=== PATIENT | male | born 1940 | race Caucasian/White ===

== ENCOUNTER 2017-07-18 23:41 | Emergency (ER) | payer OTHER ==
[~2017-07-18] VITALS: Ht 180.3 cm; Wt 99.8 kg
[~2017-07-18 23:41] MED LIST: ADULT LOW DOSE81 MG PO; ALLOPURINOL 10100 M1 PO; AZOR 5-20 MG T1 EACH PO; B COMPLEX SUBLI59 ML SL; BACTRIM; CARAFATE1 GM PO; CINNAMON PLUS1 EACH; CINNAMON500 MG PO; CIPRO250 M1 PO; CLOPIDOGREL75 MG PO; Cinnamon PO; FLAX OIL1000 MG PO; FLOMAX PO; LOTREL 5-10 MG1 EACH PO; LOTREL 5-20 MG1 EACH PO; MAGNES; MAGOX 400400 MG PO; Magnesium PO; NAPROSYN500 MG PO; OMEPRAZOLE40 MG PO; PANAX GINSENG PO; PRAVACHOL40 MG PO; PRAVASTATIN SOD40 MG PO; PREDNISONE 10 M10 MG PO; SUPER B COMPLE150 MG PO; TERBINAFINE HC250 MG PO; ZYRTEC10 MG PO
[2017-07-18] MEDS ORDERED: TRAMADOL 50 MG50 MG PO (23:55)
[2017-07-19] MEDS ORDERED: CLEOCIN HCL150 MG PO (00:43)
[2017-07-19 01:11] VITALS: BP 137/74
[2017-07-19 02:45] LABS: CLARITY SLIGHTLY HAZY; COLOR YELLOW; SOURCE ELBOW; TOTAL VOLUME 3.5 ml
[2017-07-19 02:46] LABS: BF LYMPHOCYTES 2 %; BF POLYS 98 %; BF RBC 1450 /mm3; TOTAL CELL COUNT 835 /mm3
[2017-07-19 06:07] LABS: SOURCE LEFT ELBOW
[2017-07-19 06:32] LABS: SOURCE LEFT ELBOW
[2017-07-20 06:10] LABS: BODY FLUID PROTEIN 4.2 g/dL (())
[2017-08-06 13:59] LABS: BF CRYSTALS ND
== END 2017-07-19 01:11 | disposition home or self-care (01) ==
LOC: M.ERS 23:41
PROVIDERS: Nurse Practitioner Family
DX: M71.122 Other infective bursitis, left elbow (principal); I10 Essential (primary) hypertension; G51.0 Bell's palsy; Z87.19 Personal history of other diseases of the digestive system; Z87.442 Personal history of urinary calculi; Z86.73 Personal history of transient ischemic attack (TIA), and cerebral infarction without residual deficits; Z87.891 Personal history of nicotine dependence

== ENCOUNTER 2017-09-21 21:15 | Inpatient (IN) | payer OTHER ==
[~2017-09-21] VITALS: Ht 180.3 cm; Wt 105.7 kg
[~2017-09-21 21:15] MED LIST changes: +CLEOCIN HCL150 MG PO; +TRAMADOL 50 MG50 MG PO
[2017-09-21 21:19] VITALS: BP 145/89
[2017-09-21 21:40] LABS: HEMATOCRIT 40.3 % (42.0-52.0); HEMOGLOBIN 14.2 gm/dL (14.0-18.0); MCH 32.5 pg (26.0-34.0); MCHC 35.3 g/dL (28.0-37.0); MCV 92.1 fL (80.0-100.0); MPV 6.1 fl. (7.2-11.1); NUCLEATED RBCS 0 /100WBC; PLATELET COUNT* 298 thou/uL (150-400); RBC 4.37 mil/uL (4.50-6.00); RDW-CV 14.3 % (10.5-14.5); WBC 11.1 thou/uL (4.0-11.0)
[2017-09-21 21:50] LABS: CREATININE 1.9 mg/dL (0.6-1.3); POTASSIUM 4.7 mmol/L (3.5-5.1)
[2017-09-21 21:55] LABS: ALBUMIN 3.5 g/dL (3.4-5.0); TOTAL BILIRUBIN 0.5 mg/dL (<0.1-1.0); TOTAL PROTEIN 6.7 g/dL (6.4-8.2)
[2017-09-21 22:01] LABS: ABSOLUTE EOSINOPHILS 0.1 thou/uL (0.0-0.7); ABSOLUTE LYMPHOCYTES 0.9 thou/uL (0.8-5.3); ABSOLUTE MONOCYTES 0.4 thou/uL (0.0-1.2); ABSOLUTE NEUTROPHILS 9.7 thou/uL (1.6-8.1); ATYPICAL LYMPHS 6 %; PLATELET ESTIMATE ADEQUATE
[2017-09-21 23:09] LABS: URINE BILIRUBIN NEGATIVE (Negative); URINE BLOOD 2+ (Negative); URINE COLOR YELLOW; URINE GLUCOSE-RANDOM NEGATIVE (Negative); URINE KETONES NEGATIVE (Negative); URINE NITRITE-REFLEX NEGATIVE (Negative); URINE PROTEIN TRACE (Negative); URINE UROBILINOGEN 0.2 E.U./dl (0.2-1.0)
[2017-09-21 23:11] LABS: URINE CLARITY CLOUDY; URINE LEUKOCYTES-REFLEX 3+ (Negative)
[2017-09-21 23:21] LABS: BACTERIA-REFLEX 1-9 Few /HPF (None Seen); SQUAMOUS 0-3 Few /LPF (0-3); URINE RBC 3-10 Few /HPF (0-2); URINE WBC-REFLEX >25 Many /HPF (0-5)
[2017-09-21 23:22] LABS: CASTS None Seen /LPF (None Seen); CRYSTALS None Seen /LPF (None Seen); MUCUS 0-3 Light strn/LPF (None Seen)
[2017-09-22] VITALS (7 sets, daily range): BP systolic 106–141; BP diastolic 48–75
--- NOTE | 2017-09-22 01:00 | NUR ---
PATIENT ARRIVED TO UNIT AT 0055 VIA CART. PATIENT AMBULATORY TO UNIT BED. ADMISSION HISTORY AND ASSESSMENT COMPLETED AND CHARTED, VSS. PATIENT ON ROOM AIR WITH O2 SATS >92%. PATIENT RATES PAIN 2/10 AND STATES THE "MEDICATION HE RECIEVED IN ER HELPED." IVF INFUSING PER ORDERS. PATIENT ORIENTED TO ROOM AND CALL LIGHT. PATIENT RESTING COMFORTABLY AT THIS TIME. GOAL IS EFFECTIVE PAIN CONTROL FOR THE REMAINING OF THE SHIFT. CALL LIGHT WITHIN REACH.
--- NOTE | 2017-09-22 04:10 | NUR ---
PATIENT PROGRESSING TOWARDS GOALS: PATIENT HAS NOT REQUIRED PAIN MEDICATION SINCE ARRIVAL TO UNIT. PATIENT HAS BEEN RESTING COMFORTABLY. URINE STRAINING IN PROGRESS WITH NO STONES OBSERVED. HOURLY ROUNDING OBSERVED. CALL LIGHT WITHIN REACH.
[2017-09-22 05:36] LABS: HEMATOCRIT 38.7 % (42.0-52.0); HEMOGLOBIN 13.7 gm/dL (14.0-18.0); MCH 32.5 pg (26.0-34.0); MCHC 35.3 g/dL (28.0-37.0); MPV 6.4 fl. (7.2-11.1); RBC 4.2 mil/uL (4.50-6.00); WBC 9.8 thou/uL (4.0-11.0)
[2017-09-22 05:52] LABS: ALBUMIN 3.1 g/dL (3.4-5.0); CALCIUM 8.5 mg/dL (8.5-10.1); CREATININE 1.7 mg/dL (0.6-1.3); POTASSIUM 4.5 mmol/L (3.5-5.1); TOTAL BILIRUBIN 0.5 mg/dL (<0.1-1.0); TOTAL PROTEIN 5.8 g/dL (6.4-8.2)
--- NOTE | 2017-09-22 14:35 | NUR ---
CM ASSESSMENT: Pt is A&O. Resides at home with his . Independent with ADLs. No DME. No hx of HH or SNF. Surgery following. Goal is to return home once medically stable for dc. Following for disposition.
--- NOTE | 2017-09-22 18:00 | NUR ---
PT IS A & O X4, ABLE TO COMMUNICATE NEEDS TO STAFF. VS WNL WITH EXCEPTION OF TEMP OF 100.9 AT 1600, PHYSICIAN AWARE. PER DR. MCCALL, PT IS NOW NPO AND WILL REMAIN NPO UNTIL TOMORROW'S PROCEDURE SCHEDULED FOR 729. OFFERED PT ACETAMINOPHEN FOR FEVER BUT PT REFUSED. PT STATES HE DOES NOT HAVE PAIN AT EACH ASSESSMENT THROUGHOUT THE DAY. NEEDED ITEMS AND CALL LIGHT WITHIN REACH.
--- NOTE | 2017-09-22 18:30 | NUR ---
PT'S URINE STRAINED THROUGHOUT THE SHIFT. VERY SMALL PARTICLES THAT APPEARED SIMILAR TO SAND IN ONE URINAL OUTPUT ONLY. NO OTHER PARTICLES OF ANY SIZE FOUND IN ANY URINE TODAY.
--- NOTE | 2017-09-22 21:49 | NUR ---
RECEIVED REPORT AND ASSUMED CARE OF PATIENT AT 1930. ASSESSMENT AND VITALS COMPLETED CHARTED, VSS. PATIENT ON ROOM AIR UPON ASSESSMENT, O2 SATS 90%. PATIENT DENIES SHORTNESS OF AIR OR DISCOMFORT. PATIENT PLACED ON 2L O2 NC AND O2 SATS IMPROVED >92%. PATIENT DENIES PAIN. PATIENT HAS LOW GRADE FEVER BUT NOT REQUIRING ACETAMINOPHEN AT THIS TIME. IVF INFUSING PER ORDERS. CONSENT FOR PROCEDURE SIGNED AND PLACED IN CHART. PATIENT VERBALIZES UNDERSTANDING OF PROCEDURE AND STATES HE HAS "HAD THIS DONE BEFORE." PATIENT VOIDS PER URINAL AND STAFF IS STRAINING. ONE SMALL STONE NOTED ON PATIENT'S RECENT VOID AROUND 2100. STONE COLLECTED AND SENT TO LAB. HOURLY ROUNDING OBSERVED. CALL LIGHT WITHIN REACH
[2017-09-23] VITALS (8 sets, daily range): BP systolic 110–132; BP diastolic 52–70
--- NOTE | 2017-09-23 05:01 | NUR ---
PATIENT REMAINS STABLE THIS SHIFT AND IS PARTIALLY PROGRESSING TOWARDS GOALS: PATIENT DENIES PAIN THIS SHIFT AND HAS RESTED COMFORTABLY. URINE CONTINUES TO BE STRAINED, ONE SMALL STONE FOUND AND SENT TO LAB THIS SHIFT. PATIENT NPO FOR URETER STENT PLACEMENT THIS AM. PATIENT VERBALIZES UNDERSTANDING AND IS COMPLIANT. HOURLY ROUNDING OBSERVED. CALL LIGHT WITHIN REACH
[2017-09-23 05:55] LABS: ABSOLUTE LYMPHOCYTES 0.5 thou/uL (0.8-5.3); ABSOLUTE MONOCYTES 0.6 thou/uL (0.0-1.2); ABSOLUTE NEUTROPHILS 4.1 thou/uL (1.6-8.1); BASOPHILS 0.4 %; EOSINOPHILS 0.5 %; HEMATOCRIT 36.7 % (42.0-52.0); HEMOGLOBIN 12.9 gm/dL (14.0-18.0); LYMPHOCYTES 8.7 %; MCH 32.3 pg (26.0-34.0); MCHC 35.1 g/dL (28.0-37.0); MCV 91.8 fL (80.0-100.0); MONOCYTES 11.7 %; MPV 6.4 fl. (7.2-11.1); NUCLEATED RBCS 0 /100WBC; PLATELET COUNT* 222 thou/uL (150-400); POLYS 78.7 %; RDW-CV 14.1 % (10.5-14.5); WBC 5.2 thou/uL (4.0-11.0)
[2017-09-23 06:16] LABS: CALCIUM 8.2 mg/dL (8.5-10.1); CREATININE 1.6 mg/dL (0.6-1.3); POTASSIUM 4.5 mmol/L (3.5-5.1)
--- NOTE | 2017-09-23 06:35 | NUR ---
PATIENT LEFT VIA BED TO PRE OP FOR SURGERY. SCHEDULED ROCEPHIN SENT WITH PATIENT. PRE OP CHECKLIST COMPLETED
--- NOTE | 2017-09-23 11:03 | NUR ---
ASSUMED CARE AT 0730. PT WAS OFF THE FLOOR THIS MORNING FOR URETER STENT PLACEMENT. PT RETURNED TO THE FLOOR AT 0855. PT IS A&O X4 CALM AND COOPERATIVE. HE DENIES ANY C/O PAIN OR DISCOMFORT AND VSS ON 2L VIA NC. PT VOIDING VIA URINAL AND NURSING STRAINING URINE. PT HAS A GOOD APPETITE AND ATE GREATER THAN 90% OF HIS BREAKFAST. PT CURRENTLY RESTING IN BED WITH SCD'S IN PLACE, NURSING WILL CONTINUE TO MONITOR.
--- NOTE | 2017-09-23 16:30 | NUR ---
ASSUMED CARE OF PATIENT. AGREE WITH PREVIOUS NURSES CHARTING. PATIENT HAS BEEN ORIENTED TO ROOM. IV IS PATENT AND INFUSING. VSS ON 2L O2. CAP-NO IN PLACE. CALL LIGHT IS WITHIN REACH. NURSING WILL CONTINUE TO MONITOR.
--- NOTE | 2017-09-23 18:04 | NUR ---
ALERT AND ORIENTED X4. UP STAND BY ASSIST IN ROOM. IV IS PATENT AND INFUSING. DENIES PAIN AND NAUSEA. TOLERATING DIET. URINATING VIA URINAL. VSS ON 2L O2. HOURLY ROUNDS HAVE BEEN MAINTAINED SINCE ARRIVING TO UNIT. CALL LIGHT IS WITHIN REACH. NURSING WILL CONTINUE TO MONITOR.
[2017-09-24 00:47] VITALS: BP 128/71
[2017-09-24 04:09] VITALS: BP 131/74
--- NOTE | 2017-09-24 05:42 | NUR ---
PATIENT HAS SLEPT WELL THROUGHOUT THE NIGHT. NO C/O PAIN. URINE STRAINED AND NO STONES RETRIEVED DURING SHIFT. VSS ON 2L 02 VIA NASAL CANNULA AND CAPNO. PATIENT IS UP SBA AND STEADY. IV IN RIGHT WRIST @ 100ML/HR. NEW IV PLACED IN RIGHT FOREARM D/T PATIENT ACCIDENTLY PULLING OUT HIS IV DURING THE NIGHT. PATIENT INSTRUCTED TO USE CALL LIGHT WHEN NEEDING ASSISTANCE. HOURLY ROUNDS MADE. WILL CONTINUE WITH PLAN OF CARE AND NURSING TO MONITOR.
[2017-09-24 07:49] VITALS: BP 124/66
[2017-09-24] MEDS ORDERED: CIPRO500 MG PO (09:48)
[2017-09-24] MEDS ORDERED: LEVSIN0.125 MG PO (13:36)
[2017-09-24] MEDS ORDERED: FLOMAX0.4 MG PO (13:37)
--- NOTE | 2017-09-24 13:54 | NUR ---
PT DC'D HOME WITH ALL BELONGINGS. PT ACKNOWLEDGED DISCHARGE INSTRUCTIONS AND MEDICATIONS. PT DENIED PAIN OR OTHER DISCOMFORTS. PT ABLE TO URINATE FREELY AND WITHOUT PAIN OR BLOOD NOTED. URINE STRAINED. NO STONES NOTED.
[2017-10-01 12:06] LABS: STONE COLOR Tan (()); STONE COMMENT Note: (()); STONE SODIUM ACID URATE 97 % (())
--- NOTE | 2017-11-05 15:28 | OP ---
[address] [address] OPERATIVE REPORT Name: CHARITYJESUS RASHAWN Room: [address] [place] M.R.#: [id number] Admission: 09/22/17 Attend Phys: Robin Daigle MD Discharge: 09/24/17 Date of : 40 Report #: [id number] THIS REPORT FOR: //name// CC: Robin Fairchild DATE OF SERVICE: 09/23/2017 PREOPERATIVE DIAGNOSIS: Left ureteral stone with fever. POSTOPERATIVE DIAGNOSIS: Left ureteral stone with fever. PROCEDURE: Panendoscopy and cystoscopy, left retrograde pyelogram, left double-J stent placement and urethral dilation, complex secondary to infection, ureteral dilation. INDICATIONS: This is a 77-year-old white male with a history of flank pain and multiple stones in the past. CT showed significant hydronephrosis and has a 2 mm stone at the left UPJ. He presents now for retrograde pyelogram, double-J stent. He understands risks of bleeding, infection and the other procedures. He understands the stent will be temporary and needs to be removed. He also understands that we will not get the stone out secondary to the fever he ran and the fact that he has got Proteus in the urine. DESCRIPTION OF PROCEDURE: Informed consent was obtained. The patient was sterilely prepped and draped in dorsal lithotomy position and was given appropriate antibiotic. Cystoscopy was carried out, was unable to get the scope past the distal anterior urethra. I had to dilate it starting at about [address] all the way up to 24-Tongan in order to get the 22-Tongan obturator through the urethra. There was minimal trauma doing this. I do not think he will need a Mcguire catheter. He had mild bilobar hyperplasia. He had quite a bit of mucus in the bladder which was irrigated out. No lesions were seen in the bladder. Both ureteral orifices are normal location and configuration. Left retrograde pyelogram was performed. He had his intramural ureters very tight. I do think it is strictured, but it was very tight and he had some dilation of the ureter above that all the way to the UPJ and at the UPJ, he had what looked to be a very small filling defect. I had some contrast get into the enlarged renal pelvis. A sensor wire was then placed without difficulty and then a 6 x 28 contour stent was placed showing good curl in the kidney and good curl in the bladder. The patient's bladder was drained. He was taken to recovery room in good condition. <ELECTRONICALLY SIGNED> By: Ravi Matamoros MD 11/05/17 1528 0807 [id number] Matamoros MD /nt
== END 2017-09-24 13:54 | disposition home or self-care (01) | DRG 693 ==
LOC: M.ERS 21:15 → M.TBA-ER 09-22 00:02 → M.2W 09-22 00:02 → M.ORTHSURG 09-23 15:00
PROVIDERS: Emergency Medicine; Internal Medicine; ADMIT Internal Medicine
PROC: 0T778DZ Dilation of Left Ureter with Intraluminal Device, Via Natural or Artificial Opening Endoscopic (ICD-10-PCS; principal; 2017-09-23)
PROC: BT1F1ZZ Fluoroscopy of Left Kidney, Ureter and Bladder using Low Osmolar Contrast (ICD-10-PCS; principal; 2017-09-23)
DX: N13.2 Hydronephrosis with renal and ureteral calculous obstruction (principal); R65.11 Systemic inflammatory response syndrome (SIRS) of non-infectious origin with acute organ dysfunction; N17.9 Acute kidney failure, unspecified; N39.0 Urinary tract infection, site not specified; N18.9 Chronic kidney disease, unspecified; I12.9 Hypertensive chronic kidney disease with stage 1 through stage 4 chronic kidney disease, or unspecified chronic kidney disease; E86.0 Dehydration; B96.4 Proteus (mirabilis) (morganii) as the cause of diseases classified elsewhere; Z86.73 Personal history of transient ischemic attack (TIA), and cerebral infarction without residual deficits; Z87.891 Personal history of nicotine dependence; Z82.49 Family history of ischemic heart disease and other diseases of the circulatory system

== ENCOUNTER 2017-10-28 10:08 | Observation (INO) | payer OTHER ==
[~2017-10-28] VITALS: Ht 180.3 cm; Wt 103.4 kg
--- NOTE | ~2017-10-28 | H ---
[address] [address] HISTORY AND PHYSICAL Name: JESUS NASH Room: [address] Gregorio Barahona#: [id number] Admission: 10/28/17 Attend Phys: Julieta Llanes Discharge: 10/29/17 Date of : 40 Report #: [id number] THIS REPORT FOR: //name// Please refer to the History and Physical performed in the physician's office. By: [facility] NOLA /MARILU
[~2017-10-28 10:08] MED LIST changes: +CIPRO500 MG PO; +FLOMAX0.4 MG PO; +LEVSIN0.125 MG PO
[2017-10-28 10:56] LABS: CALCIUM 8.8 mg/dL (8.5-10.1); CREATININE 1.6 mg/dL (0.6-1.3); POTASSIUM 4.3 mmol/L (3.5-5.1)
[2017-10-28 14:37] LABS: HEMATOCRIT 36.3 % (42.0-52.0); HEMOGLOBIN 12.4 gm/dL (14.0-18.0)
[2017-10-28 14:47] LABS: POTASSIUM 4.3 mmol/L (3.5-5.1)
--- NOTE | 2017-10-28 16:30 | EKG ---
[place] [address] ELECTROCARDIOGRAM REPORT Name: JESUS NASH Room: [address] M.R.#: [id number] Admission: 10/28/17 Attend Phys: Julieta Llanes Discharge: Date of : 40 Report #: [id number] THIS REPORT FOR: //name// [facility] Test Date: 2017-10-28 Test Time: 10:39:47 Pat Name: JESUS NASH Department: Room: [facility] Gender: M Shift Foreman: : 1940 Requested By: Padilla Santoyo Order Number: [id number] Otf MD: Arash Rivera Measurements Intervals Dafter Rate: 65 P: 3 WV: 182 QRS: -32 QRSD: 109 T: 3 QT: 429 QTc: 447 Interpretive Statements Sinus rhythm Left axis deviation Compared to ECG 04/15/2015 11:34:03 Sinus tachycardia no longer present Electronically Signed On 10-28-2017 16:30:19 CDT by Arash Rivera [email or web address] <ELECTRONICALLY SIGNED> By: Arash Rivera MD, [facility] 10/28/17 1630 1039 1039 Arash Rivera MD, [facility] /EPI
[2017-10-28 18:36] VITALS: BP 135/67
[2017-10-28 23:48] VITALS: BP 124/70
[2017-10-29 04:21] VITALS: BP 121/64
[2017-10-29 04:28] LABS: HEMATOCRIT 35.9 % (42.0-52.0); HEMOGLOBIN 12.4 gm/dL (14.0-18.0); MCH 30.9 pg (26.0-34.0); MCHC 34.4 g/dL (28.0-37.0); MCV 89.7 fL (80.0-100.0); MPV 6.7 fl. (7.2-11.1); RDW-CV 13.8 % (10.5-14.5); WBC 12.1 thou/uL (4.0-11.0)
[2017-10-29 04:54] LABS: CALCIUM 8.4 mg/dL (8.5-10.1); CREATININE 1.6 mg/dL (0.6-1.3)
[2017-10-29 04:56] LABS: POTASSIUM 5.5 mmol/L (3.5-5.1)
[2017-10-29 07:20] VITALS: BP 118/46; BP 127/40
[2017-10-29 11:53] LABS: CALCIUM 8.2 mg/dL (8.5-10.1); CREATININE 1.8 mg/dL (0.6-1.3); POTASSIUM 4.2 mmol/L (3.5-5.1)
[2017-10-29] MEDS ORDERED: HYDROCODONE-AP1 EAC6 PO (14:00)
[2017-10-29 14:12] VITALS: BP 127/40
--- NOTE | 2018-02-07 10:17 | OP ---
[address] [address] OPERATIVE REPORT Name: JESUS NASH Room: [address] Gregorio Barahona#: [id number] Admission: 10/28/17 Attend Phys: Julieta Llanes Discharge: 10/29/17 Date of : 40 Report #: [id number] THIS REPORT FOR: //name// CC: Ravi Fairchild SURGEON: Dr. Matamoros. PREOPERATIVE DIAGNOSIS: Left ureteral stones. POSTOPERATIVE DIAGNOSIS: Left ureteral stones. PROCEDURE: Panendoscopy, cystoscopy, removal of left double-J stent, replacement of double-J stent, ureteroscopy, holmium laser of stone and extraction of stone. No complication. INDICATIONS: This is a white male with a history of ureteral stones, who had a double-J stent placed approximately 3 weeks prior. He presents now for ureteroscopy and breakup of the ureteral stones. Also, has a kidney stone. He understands all risks including bleeding, infection, need for another procedure, cardiovascular and pulmonary complications. DESCRIPTION OF PROCEDURE: Informed consent was obtained. The patient sterilely prepped and draped in dorsal lithotomy position. He was given appropriate antibiotics. Cystoscopy was carried out. The stent was seen, then grasped and removed. A sensor wire and a ZIPwire were used as a safety wire. Ureteral access sheath was placed. Stone was then accessed using flexible ureteroscopy. It was broken up into 1 mm and 2 mm pieces, all of which were extracted. A 4.8 x 20 stent was then replaced. The patient tolerated this well and was taken to recovery room in good condition. <ELECTRONICALLY SIGNED> By: Ravi Matamoros MD 02/07/18 1017 0809 [id number] Matamoros MD /nt
== END 2017-10-29 14:45 | disposition home or self-care (01) ==
LOC: M.SUR 10:08 → M.ORTHSURG 14:13 → M.TBA 14:13 → M.ORTHSURG 18:22
PROVIDERS: Anesthesiology; Urology; ADMIT Urology
DX: N20.1 Calculus of ureter (principal); N28.1 Cyst of kidney, acquired; N20.0 Calculus of kidney; N13.30 Unspecified hydronephrosis; D72.829 Elevated white blood cell count, unspecified; Z87.891 Personal history of nicotine dependence; Z93.59 Other cystostomy status; Z71.3 Dietary counseling and surveillance